=== PATIENT | female | born 2000 | race American Indian/Alaskan Native ===

== ENCOUNTER 2021-11-09 03:41 | Inpatient (IN) | payer MEDICAID ==
[2021-11-09] MEDS ORDERED: LACTATED RINGERS 1,000 ML ONE (04:55)
[2021-11-09] MEDS ORDERED: OXYTOCIN 10 UNIT/1 ML INJ IM PRN (05:40)
[2021-11-09] MEDS ORDERED: ePHEDrine SULFATE 50 MG/1 ML INJ IV PRN ×2 (05:40→09:00)
[2021-11-09] MEDS ORDERED: BUTORPHANOL 2 MG/1 ML INJ IV PRN ×2 (05:40)
[2021-11-09] MEDS ORDERED: miSOPROStol 200 MCG TAB PR PRN (05:40)
[2021-11-09] MEDS ORDERED: MINERAL OIL 30 ML ORAL LIQD PO PRN (05:40)
[2021-11-09] MEDS ORDERED: METHYLERGONOVINE MALEATE 0.2 MG/ML VIAL IM PRN (05:40)
[2021-11-09] MEDS ORDERED: LIDOCAINE (2%) 20 MG/1 ML VIAL 20 ML MDV INFILTRATI ONE ×2 (05:40→11:56)
[2021-11-09] MEDS ORDERED: CARBOPROST TROMETHAMINE 250 MCG/1 ML INJ IM PRN (05:40)
[2021-11-09] MEDS ORDERED: TERBUTALINE 1 MG/1 ML INJ SUB-Q PRN (05:40)
[2021-11-09] MEDS ORDERED: ACETAMINOPHEN 325 MG TAB PO PRN (05:40)
[2021-11-09] MEDS ORDERED: LOPERAMIDE 2 MG CAP PO PRN (05:40)
[2021-11-09] MEDS ORDERED: LACTATED RINGERS 1,000 ML IV SCH (05:45)
[2021-11-09 05:59] LABS: Hematocrit 36.8 % (30.3-42.9); Hemoglobin 12.6 gm/dl (10.1-14.3); Mean Corpuscular HGB Conc 34 % (30-34); Mean Corpuscular Volume 92 fl (79-97); Platelet Count 210 K/mm3 (140-440); Red Blood Count 3.98 M/mm3 (3.65-5.03); Red Cell Distribution Width 13.5 % (13.2-15.2)
[2021-11-09] MEDS ORDERED: OXYTOCIN DRIP 30 UNITS/500 ML BAG IV SCH ×2 (06:00)
--- NOTE | 2021-11-09 07:48 | Anesthesia Consultation ---
Anesthesia Consult and Med Hx Date of service: 11/09/21 - Airway Anesthetic Teeth Evaluation: Poor ROM Head & Neck: Adequate Mental/Hyoid Distance: Adequate Mallampati Class: Class II Intubation Access Assessment: Probably Good - Pulmonary Exam CTA: Yes - Cardiac Exam Cardiac Exam: RRR - Pre-Operative Health Status ASA Pre-Surgery Classification: ASA2 Proposed Anesthetic Plan: Epidural - Pulmonary Hx Smoking: No Hx Asthma: No Hx Respiratory Symptoms: No COPD: No Hx Pneumonia: No - Cardiovascular System Hx Hypertension: No - Central Nervous System Hx Neuromuscular Disorder: No Hx Back Pain: No - Gastrointestinal Hx Gastroesophageal Reflux Disease: Yes - Endocrine Hx End Stage Renal Disease: No Hx Insulin Dependent Diabetes: No Hx Non-Insulin Dependent Diabetes: No Hx Thyroid Disease: No - Other Systems Hx Alcohol Use: No Hx Substance Use: No Hx Obesity: Yes
--- NOTE | 2021-11-09 07:49 | Progress Note ---
Labor Epidural - Labor Epidural Start Time: 07:30 Stop Time: 07:40 Performed by:: DUARTE SAMANO Procedure: Patient is requesting epidural for labor pain. H&P and labs reviewed. Procedure explained, questions answered, consent obtained. Patient placed in sitting position with monitors applied. Timeout performed immediately before start of procedure. Prep/drape in usual sterile fashion. Skin localized 3 mL 1% lidocaine at L[3]-L[4] interspace. 17-gauge Touhy epidural needle advanced to KENDY with saline at [8] cm. No blood/CSF noted via epidural needle. Epidural catheter advanced to [12] cm. Negative aspiration for blood and CSF via catheter, negative response to test dose 3 ml 1.5% lidocaine w/ Epi. Sterile dressing applied followed by tape reinforcement. Patient tolerated procedure well. No immediate complications noted.
[2021-11-09] MEDS ORDERED: fentaNYL-BUPIV 2 MCG/ML-0.125% 200 MCG/100 ML BAG EPIDURAL SCH (09:00)
[2021-11-09] MEDS ORDERED: NALOXONE 2 MG/2 ML INJ IV PRN (09:00)
--- NOTE | 2021-11-09 09:44 | History and Physical Report ---
History of Present Illness Date of examination: 11/09/21 Date of admission: 11/09/21 05:42 Chief complaint: contractions History of present illness: Pt is a 21 year old -[place] female primigravida ALICE 11/05/21 at 40w4d presents with contractions. She denies vaginal bleeding or leakage of fluid. She has had care at [facility] complicated by late entry to care at 19 wks, excess weight gain in the . She is GBS negative. Past History Past Medical History: no pertinent history Past Surgical History: no surgical history Family/Genetic History: none Social history: no significant social history - Obstetrical History Expected Date of Delivery: 11/05/21 Actual Gestation: 40 Week(s) 4 Day(s) : 1 Medications and Allergies Allergies Allergy/AdvReac Type Severity Reaction Status Date / Time No Known Allergies Allergy Verified 11/09/21 04:59 Active Meds: Active Medications Acetaminophen (Acetaminophen 325 Mg Tab) 650 mg PO Q4H PRN PRN Reason: Pain, Mild (1-3) Butorphanol Tartrate (Butorphanol 2 Mg/1 Ml Inj) 1 mg IV Q2H PRN PRN Reason: Pain, Moderate(4-6) LABOR PAIN Butorphanol Tartrate (Butorphanol 2 Mg/1 Ml Inj) 2 mg IV Q2H PRN PRN Reason: Pain , Severe (7-10) Carboprost Tromethamine (Carboprost Tromethamine 250 Mcg/1 Ml Inj) 250 mcg IM ONCE PRN PRN Reason: Uterine Bleeding Ephedrine Sulfate (Ephedrine Sulfate 50 Mg/1 Ml Inj) 10 mg IV Q2M PRN PRN Reason: Hypotension Oxytocin/Sodium Chloride (Pitocin/Ns 30 Unit/500ml) 30 units in 500 mls @ 2 mls/hr IV TITR WYATT; Protocol Lactated Ringer's (Lactated Ringers) 1,000 mls @ 125 mls/hr IV DIRECT WYATT Last Admin: 11/09/21 07:31 Dose: 125 mls/hr Oxytocin/Sodium Chloride (Pitocin/Ns 30 Unit/500ml) 30 units in 500 mls @ 40 mls/hr IV TITR WYATT; Protocol Fentanyl/Bupivacaine/Sodium Chlor (Fentanyl-Bupiv 2 Mcg/Ml-0.125%) 200 mcg in 100 mls @ 12 mls/hr EPIDURAL TITR WYATT; Protocol Loperamide HCl (Loperamide 2 Mg Cap) 2 mg PO ONCE PRN PRN Reason: give with Hemabate Methylergonovine Maleate (Methylergonovine Maleate 0.2 Mg/Ml Vial) 0.2 mg IM ONCE PRN PRN Reason: Uterine Bleeding Mineral Oil (Mineral Oil 30 Ml Oral Liqd) 30 ml PO QHS PRN PRN Reason: Constipation Misoprostol (Misoprostol 200 Mcg Tab) 800 mcg TN ONCE PRN PRN Reason: Uterine Bleeding Naloxone HCl (Naloxone 2 Mg/2 Ml Inj) 0.2 mg IV Q5M PRN PRN Reason: Respiratory sedation Oxytocin (Oxytocin 10 Unit/1 Ml Inj) 10 unit IM ONCE PRN PRN Reason: Uterine Bleeding Terbutaline Sulfate (Terbutaline 1 Mg/1 Ml Inj) 0.25 mg SUB-Q ONCE PRN PRN Reason: Hyperstimulation/Hypertonicity Review of Systems All systems: negative - Vital Signs Vital signs: Vital Signs Pulse BP Pulse Ox 79 125/76 97 11/09/21 04:16 11/09/21 04:16 11/09/21 04:16 Temp Pulse Resp BP Pulse Ox 98 F 80 15 134/85 98 11/09/21 08:46 11/09/21 09:39 11/09/21 04:27 11/09/21 08:29 11/09/21 09:39 - Physical Exam Breasts: Positive: deferred Abdomen: Positive: soft (obese, gravid ) Uterus: Positive: enlarged (gravid ) Extremities: Positive: normal - Obstetrical FHR: auscultation normal Cervical Dilatation: 8 Cervical Effacement Percentage: 90 station: -1 Uterine Contraction Pattern: Regular Uterine Tone Measurement Phase: Resting Uterine Contraction Intensity: Strong/Firm Results Result Diagrams: 11/09/21 05:31 All other labs normal. Assessment and Plan A: IUP at 40 Active Labor Morbid Obesity GBS negative P: Admit to labor and delivery AROM- meconium stained fluid Routine intrapartum care
--- NOTE | 2021-11-09 12:35 | Procedure Note ---
OB Delivery Note - Delivery Date of Delivery: 11/09/21 Surgeon: JULIAN GRANT Estimated blood loss: other (600 mL) - Vaginal Delivery presentation: vertex Delivery position: OA Intrapartum events: PROM->1hr before delivery, decreased FHT variability Delivery induction: none Delivery augmentation: rupture of membranes, pitocin Delivery monitor: external FHT, external uterine Route of delivery: Delivery placenta: spontaneous Episiotomy: none Delivery laceration: 1st degree (perurethral hemostatic ), 2nd degree (perineal repaired with 2-0 and 3-0 chromic in a standard fashion ) Delivery repair: chromic Anesthesia: epidural - Infant A at 1 minute: 8 at 5 minutes: 9 Gender: Male (3570g (7lb 14oz) @ 1147 am)
[2021-11-09] MEDS ORDERED: BENZOCAINE/MENTHOL 20/0.5% TOP SPRAY 56 GM TP PRN ×2 (12:36→14:20)
[2021-11-09] MEDS ORDERED: diphenhydrAMINE 25 MG CAP PO PRN (14:20)
[2021-11-09] MEDS ORDERED: WITCH HAZEL/ GLYCERIN PAD TP PRN (14:20)
[2021-11-09] MEDS ORDERED: miSOPROStol 100 MCG TAB PR PRN (14:20)
[2021-11-09] MEDS ORDERED: LANOLIN/ZINC/DIMETHICONE (LANSINOH) 7 GM TP PRN ×2 (14:20)
[2021-11-09] MEDS ORDERED: PROMETHAZINE 25 MG RECT SUPP PR PRN (14:20)
[2021-11-09] MEDS ORDERED: ONDANSETRON 4 MG/2 ML INJ IV PRN (14:20)
[2021-11-09] MEDS ORDERED: HYDROcodone/ACETAMINOPHEN 5-325 MG TAB PO PRN (14:20)
[2021-11-09] MEDS ORDERED: MAGNESIUM HYDROXIDE (MOM) ORAL LIQD UDC PO PRN (14:20)
[2021-11-09] MEDS ORDERED: PROMETHAZINE 25 MG TAB PO PRN (14:20)
[2021-11-09] MEDS: IBUPROFEN 600 MG TAB PO SCH (17:46)
[2021-11-10 01:15] LABS: Hematocrit 28.8 % (30.3-42.9); Hemoglobin 9.8 gm/dl (10.1-14.3)
[2021-11-10] MEDS ORDERED: TETANUS,DIPH,PERTUSS(ACELL) VACCINE 0.5 ML SYRINGE IM ONE (06:00)
[2021-11-10] MEDS: IBUPROFEN 600 MG TAB PO SCH ×2 (06:14)
--- NOTE | 2021-11-10 08:50 | Progress Note ---
Assessment and Plan A:PPD#1 s/p at term P:Continue with routine care, anticipate discharge this afternoon. Subjective - Subjective Date of service: 11/10/21 Principal diagnosis: PPD#1 s/p at term Interval history: Patient is feeling well and has no complaints. She is excited to go home. She reports adequate pain control, decreasing lochia and denies issues with ambulation. Patient reports: appetite normal, voiding normally, pain well controlled, ambulating normally [place]: doing well Objective - Vital Signs Latest vital signs: Vital Signs Temp Pulse Resp BP BP Pulse Ox Pulse Ox 11/10/21 08:15 100 11/10/21 07:42 98.2 F 86 18 114/61 98 11/10/21 06:48 18 11/10/21 06:14 18 11/10/21 01:00 18 11/10/21 00:21 98.2 F 96 H 20 109/66 99 11/10/21 00:00 18 11/09/21 20:59 98.0 F 87 20 106/64 97 11/09/21 19:46 100 11/09/21 16:20 98.4 F 83 18 119/66 99 11/09/21 13:45 98 F 85 20 115/72 99 99 11/09/21 13:08 91 H 94 11/09/21 13:05 99 H 97 11/09/21 13:02 66 91 11/09/21 13:00 86 98 11/09/21 12:56 86 91 11/09/21 12:55 86 95 11/09/21 12:53 82 156/67 11/09/21 12:50 84 97 11/09/21 12:49 90 87 11/09/21 12:45 92 H 98 11/09/21 12:40 93 H 97 11/09/21 12:39 94 H 139/71 94 11/09/21 12:35 94 H 97 11/09/21 12:34 99 H 93 11/09/21 12:30 80 98 11/09/21 12:27 89 89 11/09/21 12:25 80 98 11/09/21 12:23 76 124/67 11/09/21 12:22 76 94 11/09/21 12:20 79 100 11/09/21 12:15 78 98 11/09/21 12:10 80 96 05 12:08 82 123/61 05 12:05 82 96 11/09/21 12:00 73 99 05 11:55 88 94 11/09/21 11:53 72 140/57 05 11:50 80 99 11/09/21 11:45 84 96 11/09/21 11:40 124 H 98 11/09/21 11:35 83 99 11/09/21 11:30 81 99 11/09/21 11:25 93 H 98 05 11:20 105 H 97 11/09/21 11:15 88 96 11/09/21 11:13 68 94 11/09/21 11:10 83 96 11/09/21 11:04 89 98 11/09/21 11:01 93 H 90 11/09/21 10:59 96 H 98 11/09/21 10:54 85 97 11/09/21 10:49 84 97 11/09/21 10:46 84 91 11/09/21 10:44 81 98 05 10:39 79 92 05 10:37 95 H 94 11/09/21 10:34 83 97 11/09/21 10:29 77 98 05 10:24 79 97 11/09/21 10:21 85 93 11/09/21 10:19 80 98 11/09/21 10:14 79 97 11/09/21 10:09 78 98 11/09/21 10:04 80 97 11/09/21 09:59 79 98 05 09:54 72 97 05 09:49 73 98 05 09:44 80 97 05 09:39 80 98 0502 09:34 80 98 05 09:29 77 99 05 09:24 74 97 05 09:19 72 97 05 09:15 76 94 05 09:14 74 96 05 09:09 77 96 05 09:04 77 94 0502 09:03 78 93 0502 08:59 75 97 0502 08:57 71 93 0509/01 08:54 76 98 05/02/22 08:52 75 94 11/09/21 08:49 75 98 Intake and Output 11/09/21 11/10/21 11/10/21 23:59 07:59 15:59 Intake Total 560 360 Output Total 500 700 Balance 60 -340 Intake: Oral 240 Intake, Free Water 320 360 Output: Urine 500 700 Void 500 700 Other: Total, Intake Amount 240 Total, Output Amount 500 700 # Voids Void 2 1 - Exam Uterus: Present: normal, firm - Labs Labs: Abnormal lab results 11/10/21 Range/Units 00:31 Hgb 9.8 L (10.1-14.3) gm/dl Hct 28.8 L D (30.3-42.9) %
--- NOTE | 2021-11-10 08:51 | Discharge Summary ---
Providers - Providers Date of Admission: 11/09/21 05:42 Date of discharge: 11/10/21 Attending physician: DIDIER HALL 11/09/21 14:20 Consult to [employer] [facility] [CONS] Routine Reason For Exam: assistance with , SNS Primary care physician: DIDIRE HALL Hospitalization Reason for admission: active labor, IUP at term Delivery: Episiotomy: none Laceration: 1st degree, 2nd degree, other (periurethral hemostatic) Other procedures: none complications: other (PPH) Discharge diagnosis: IUP at term delivered [place] baby: male Condition at discharge: Good Disposition: HOME / SELF CARE / HOMELESS Plan - Discharge Medications Prescriptions: Ferrous Sulfate [Feosol 325 MG tab] 325 mg PO BID #60 tablet Ibuprofen [Motrin] 600 mg PO Q8H PRN #30 tablet PRN Reason: Pain - Provider Discharge Summary Activity: routine, no sex for 6 weeks, no heavy lifting 4 weeks, no strenuous exercise Diet: routine Instructions: routine Additional instructions: [] Smoking cessation referral if applicable(refer to patient education folder for contact #) [] Refer to [facility]'s [facility] Booklet Call your doctor immediately for: * Fever > 100.5 * Heavy vaginal bleeding ( >1 pad per hour) * Severe persistent headache * Shortness of breath * Reddened, hot, painful area to leg or breast * Drainage or odor from incision. * Keep incision clean and dry at all times and follow doctor's instructions regarding bathing/showering - Follow up plan Follow up: BRANDON GAYTAN NP [Advanced Practice Nurse] - 14 Days Forms: [facility] Discharge Summary
[2021-11-10] MEDS: DOCUSATE SODIUM 100 MG CAP PO SCH ×2 (09:54)
--- NOTE | 2021-11-10 11:04 | Post Anesthesia Evaluation ---
- Post Anesthesia Evaluation Patient Participated: Yes Airway Patent: Yes Stable Respiratory Function: Yes Nausea/Vomiting: No Temp > 96.8F: Yes Pain Manageable: Yes Adequeate Hydration: Yes Anesthesia Complications: No Block Receding Appropriately: Yes Patient on Ventilator: No
[2021-11-10] MEDS ORDERED: MEASLES, MUMPS & RUBELLA 12,500 UNIT/0.5 ML VACCINE SUB-Q ONE (12:35)
[2021-11-10 14:09] VITALS: BP 111/61
== END 2021-11-10 14:50 | disposition home or self-care (01) | DRG 774 ==
LOC: TRG 03:41 → APU 03:52 → LD 05:37 → TRG 05:42 → OB 13:37
PROVIDERS: ADMIT Obstetrics & Gynecology; ATTEND Obstetrics & Gynecology
PROC: 10E0XZZ Delivery of Products of Conception, External Approach (ICD-10-PCS; principal; 2021-11-09)
PROC: 0KQM0ZZ Repair Perineum Muscle, Open Approach (ICD-10-PCS; 2021-11-09)
PROC: 3E0R3BZ Introduction of Anesthetic Agent into Spinal Canal, Percutaneous Approach (ICD-10-PCS; 2021-11-09)
PROC: 00HU33Z Insertion of Infusion Device into Spinal Canal, Percutaneous Approach (ICD-10-PCS; 2021-11-09)
PROC: 3E0234Z Introduction of Serum, Toxoid and Vaccine into Muscle, Percutaneous Approach (ICD-10-PCS; 2021-11-10)
DX: O99.214 Obesity complicating childbirth (principal); O72.1 Other immediate postpartum hemorrhage; O42.92 Full-term premature rupture of membranes, unspecified as to length of time between rupture and onset of labor; O99.62 Diseases of the digestive system complicating childbirth; Z3A.40 40 weeks gestation of pregnancy; K21.9 Gastro-esophageal reflux disease without esophagitis; E66.01 Morbid (severe) obesity due to excess calories; O70.1 Second degree perineal laceration during delivery; Z23 Encounter for immunization; Z20.822 Contact with and (suspected) exposure to COVID-19; Z37.0 Single live birth
CPT/HCPCS: 36415; 85014; 85018; 85027; 86592; 86850; 86900; 86901; 99211; G0378; J3490; G0463; J2590; J7120; U0003